=== PATIENT | female | born 2005 ===

== ENCOUNTER → 2025-02-14 | Outpatient (CLI) | payer OTHER | END | disposition home or self-care (01) | LOC: LAB SHORT 15:21 → LAB 15:21 | DX: O09.93 Supervision of high risk pregnancy, unspecified, third trimester (principal) | CPT/HCPCS: 87081; 87150 ==

== ENCOUNTER 2025-02-25 17:17 | Inpatient (IN) | payer OTHER ==
[~2025-02-25] VITALS: Ht 160 cm; Wt 84.5 kg
[2025-02-25] VITALS (23 sets, daily range): BP systolic 100–177; BP diastolic 59–102
[2025-02-25] MEDS ORDERED: CeFAZolin Sodium 2,000 MG in NS 100 ML IV SCH (18:10)
[2025-02-25 18:11] LABS: BASOPHILS ABSOLUTE AUTO 0.06 K/mm3 (0.00-0.23); BASOPHILS PERCENT AUTO 0 % (0-2); EOSINOPHILS ABSOLUTE AUTO 0.28 K/mm3 (0.00-0.68); EOSINOPHILS PERCENT AUTO 2 % (0-6); Hematocrit 33.7 % (33.0-51.0); Hemoglobin 11.6 g/dL (11.5-16.0); IMMATURE GRAN ABSOLUTE AUTO 0.23 K/mm3 (0.00-0.10); IMMATURE GRAN PERCENT AUTO 1 % (0-1); LYMPHOCYTES ABSOLUTE AUTO 2.74 K/mm3 (0.84-5.20); LYMPHOCYTES PERCENT AUTO 16 % (21-46); MONOCYTES ABSOLUTE AUTO 1.43 K/mm3 (0.16-1.47); MONOCYTES PERCENT AUTO 8 % (4-13); Mean Corpuscular HGB Conc 34.4 g/dL (31.5-36.5); Mean Corpuscular Volume 92 fL (80-100); NEUTROPHILS ABSOLUTE AUTO 12.67 K/mm3 (1.96-9.15); NEUTROPHILS PERCENT AUTO 73 % (41-73); NRBC ABSOLUTE 0.00 K/mm3 (0.00-0.02); NRBC Auto 0.0 /100 WBC (0.0-0.2); Platelet Count 222 K/mm3 (150-400); RDW Coefficient Variation 13.8 % (11.7-14.2); RDW Standard Deviation 46.2 fL (35.1-46.3)
[2025-02-25] MEDS ORDERED: SERT50 PO (18:32)
[2025-02-25] MEDS ORDERED: HYDPAM50 PO (18:32)
[2025-02-25] MEDS ORDERED: PRENATAL TABLE1 EAC2 PO (18:32)
[2025-02-25] MEDS ORDERED: Metoclopramide HCl 5MG / ML 2ML Vial IV PRN (18:40)
[2025-02-25] MEDS ORDERED: Citric Acid/Sodium Citrate 30 ML BTL PO PRN (18:40)
[2025-02-25] MEDS ORDERED: Carboprost Tromethamine 250 MCG/ML 1ML Amp IM PRN ×2 (19:10→20:50)
[2025-02-25] MEDS ORDERED: Methylergonovine Maleate 0.2MG / ML 1ML Amp IM PRN ×2 (19:10→21:00)
[2025-02-25] MEDS ORDERED: Ondansetron HCl 2 MG / ML 2ML Vial IV PRN ×3 (19:10→21:05)
[2025-02-25] MEDS ORDERED: OXYTOCIN/RINGER'S LACTATE 500 ML IV PRN (19:10)
[2025-02-25] MEDS ORDERED: Oxytocin 10 Unit / ML Vial IM PRN (19:10)
[2025-02-25] MEDS ORDERED: Oxytocin 10 Unit / ML Vial ONE (19:54)
[2025-02-25] MEDS ORDERED: Ondansetron HCl 2 MG / ML 2ML Vial ONE (20:06)
[2025-02-25] MEDS ORDERED: Dexamethasone Sod Phos 10 MG/ML 1ML VIAL ONE (20:11)
[2025-02-25 20:14] LABS: U Amphetamine Screen Not Detected; U Barbituate Screen Not Detected; U Benzodiazapine Screen Not Detected; U Buprenorphine Screen Not Detected; U Cannabinoids Screen DETECTED; U Cocaine Screen Not Detected; U Methadone Screen Not Detected; U Methamphetamine Screen Not Detected; U Opiates Screen Not Detected; U Oxycodone Screen Not Detected; U Phencyclidine Screen Not Detected
[2025-02-25 20:41] LABS: PCO2 Cord - Arterial 51.9 mmHg (40-50); PO2 Cord - Arterial 18.3 mmHg (16-20); pH Cord - Arterial 7.27 (7.28-7.35)
[2025-02-25 20:45] LABS: PCO2 Cord - Venous 49.1 mmHg (40-50); PO2 Cord - Venous < 14.0 mmHg (28-32); pH Umbilical Cord - Venous 7.33 (7.26-7.35)
[2025-02-25] MEDS ORDERED: OXYTOCIN/RINGER'S LACTATE 500 ML IV SCH (20:50)
[2025-02-25] MEDS ORDERED: Morphine Sulfate 4 MG/1 ML Injection IV PRN (20:55)
[2025-02-25] MEDS ORDERED: Rho(D) Immune Globulin 300 MCG / SYR IM ONE (20:55)
[2025-02-25] MEDS ORDERED: Magnesium Hydroxide Conc 10 ML UDC PO PRN (21:00)
[2025-02-25] MEDS ORDERED: Metoclopramide HCl 5MG / ML 2ML Vial IV ONE (21:00)
[2025-02-25] MEDS ORDERED: FentaNYL Citrate 50 MCG/ML 2 ML Injection IV PRN (21:00)
[2025-02-25] MEDS ORDERED: Ketorolac Tromethamine 30mg Vial IV SCH (21:00)
[2025-02-25] MEDS ORDERED: Citric Acid/Sodium Citrate 30 ML BTL PO ONE (21:05)
[2025-02-25] MEDS ORDERED: Prochlorperazine Edisylate 10 mg Vial IV PRN (21:05)
[2025-02-25] MEDS ORDERED: FentaNYL Citrate 50 MCG/ML 2 ML Injection ONE (21:08)
[2025-02-25] MEDS ORDERED: HYDROmorphone HCl/Pf 1MG SYR IV PRN (21:10)
[2025-02-25] MEDS ORDERED: Albuterol 2.5 MG/3 ML VIAL INH PRN (21:10)
[2025-02-25] MEDS ORDERED: Ketorolac Tromethamine 15mg Vial IV PRN (21:20)
[2025-02-26] VITALS (8 sets, daily range): BP systolic 118–137; BP diastolic 56–94
[2025-02-26] MEDS ORDERED: Prenatal Vit/FE Fumarate/FA 1 Tab PO SCH (09:00)
[2025-02-27 04:05] VITALS: BP 123/57
[2025-02-27 07:59] VITALS: BP 122/66
--- NOTE | 2025-02-27 11:02 | NUR ---
1000: MARIBETH DRISCOLL([facility] SAULT CHILD WELFARE ASSEMBLER FISHING FLOATS) AND RIMA CHAVEZ(OR DEPARTMENT OF HUMAN SERVES) HERE TO SEE PT. BOTH ENQUIRED IF STAFF HAD ANY CONCERNS. NOTHING TO REPORT AT THIS TIME. PT HAS BEEN APPROPRIATE. DID DISCUSS THE FACT THAT THE FOB, JT LINCOLN, WAS ON HIS WAY TO COME SEE THE NB. MARIBETH AND RIMA SAID THEY WOULD STAY AROUND AND VISIT WITH BOTH PARENTS AND WOULD REPORT A PLAN TO STAFF. DISCUSSED THE PLAN OF D/C ON MOM TOMORROW. MARIBETH SAID SHE WOULD BE BACK TOMORROW MORNING TO HELP WITH PICKING UP ANTONI'S PRESCRIPTIONS AND WOULD BE IN CONTACT WITH [facility] STAFF ABOUT HER SCRIPTS.
[2025-02-27 12:11] VITALS: BP 130/68
--- NOTE | 2025-02-27 13:23 | NUR ---
RIMA CHAVEZ ([facility] [employer] OF HUMAN RESOURCES CPS) AND UNIQUE DRISOCLL ([facility] CHILD [facility] CAMOUFLAGE ASSEMBLER) HERE TO SEE PT THIS MORNING. SPOKE WITH PT AND WITH JT AHMADI. PHONE NUMBERS LEFT WITH STAFF FOR CONTACTING IF ANY CONCERNS ARISE. PLAN THAT PT GOES HOME WITH NB TO [facility] AT THIS TIME. OFFICIAL PLAN AND PAPERWORK WILL BE BROUGHT IN TOMORROW. EPS SCORE 9/10. REFERRAL REQUEST SENT PER PT SOCIAL STATUS. SPOKE WITH WISAM FROM SOCIAL WORKERS. SHE REQUEST CPS WORKERS NAMES AND NUMBERS AND ALL PROVIDED. PT HAS BEEN INTO SEE NB VERY BRIEFLY THIS MORNING THE NURSERY IS VERY BUSY WITH MULTIPLE PTS AND STAFF. PT AND FOB STATE THEY FEEL LIKE THERE ISN'T MUCH SPACE. THEY HAVE BEEN GOING OUTSIDE TO SIT [facility] THE [facility] THEY SAY AND CURRENTLY IN THE ROOM, PT IS SLEEPING. JT AHMADI, ATTENTIVE TO ANTONI.
--- NOTE | 2025-02-27 13:31 | NUR ---
WISAM FROM SHOWER ROOM ATTENDANT CALLED AND AFTER SPEAKING WITH SOCIAL WORKERS RIMA AND MARIBETH, SHE FEELS THAT THERE IS NOTHING MORE SHE CAN OFFER THE PT THAT THEY AREN'T ALREADY COVERING SO NO VISIT FROM OUR SOCIAL SERVIICE WORKER WILL BE HAPPENING.
--- NOTE | 2025-02-27 14:42 | NUR ---
PT OUTSIDE WITH FOB. DENIES PAIN
[2025-02-27 16:02] VITALS: BP 109/53
[2025-02-27 20:22] VITALS: BP 114/73
[2025-02-27 23:13] VITALS: BP 123/71
[2025-02-28 04:51] VITALS: BP 157/82
[2025-02-28 05:02] VITALS: BP 124/75
[2025-02-28 08:06] VITALS: BP 135/86
[2025-02-28] MEDS ORDERED: DOCU100 PO (10:16)
[2025-02-28] MEDS ORDERED: IBUP800 PO (10:16)
[2025-02-28 10:30] VITALS: BP 119/72
--- NOTE | 2025-02-28 10:30 | NUR ---
Nara is doing well and cleared for discharge. Presriptions were picked up for her and they are in hand. Discharge instructions reviewed with patient and pt knows to make appt with panchito chen within 2 weeks. she also is scheduled for f/u wednesday with clinic rn Priscilla. all questions answered. patient ambulating well and pain well controlled with motrin and tylenol. is visiting baby in nursery and pumping. discharged to boarder status.
--- NOTE | 2025-03-02 10:59 | NUR ---
SCHEDULED FOR PPFU TODAY - PT REQUEST TO CHANGE APPOINTMENT TO BE ADDED TO BABY'S APPOINTMENT - PLAN FOR BABY TO DISCHARGE THIS EVENING - MOM DENIED QUESTIONS AT THIS TIME - EDUCATION R/T PUMP USE - HAND EXPRESSION - DENIED ANY OTHER NEEDS AT THIS TIME. SPOKE W/BHARAT RN REQUESTED TO SCHEDULE MOM APPOINTMENT W/BABYS AT DISCHARGE - ALSO REQUESTED ACC TO ADD NOTE TO FOR APPOINTMENT REMINDER
== END 2025-02-28 10:34 | disposition home or self-care (01) | DRG 787 ==
LOC: OBS 17:17 → BC 17:17 → OBS 18:02 → BC 18:12
PROVIDERS: Obstetrics & Gynecology; ADMIT Family Medicine
PROC: 10D00Z1 Extraction of Products of Conception, Low, Open Approach (ICD-10-PCS; principal; 2025-02-25 19:00)
DX: O36.8330 Maternal care for abnormalities of the fetal heart rate or rhythm, third trimester, not applicable or unspecified (principal); O99.324 Drug use complicating childbirth; O99.344 Other mental disorders complicating childbirth; O09.213 Supervision of pregnancy with history of pre-term labor, third trimester; F12.90 Cannabis use, unspecified, uncomplicated; F41.9 Anxiety disorder, unspecified; Z3A.37 37 weeks gestation of pregnancy; Z37.0 Single live birth; Z79.899 Other long term (current) drug therapy
CPT/HCPCS: 36415; 59025; 82803; 85025; 86850; 86900; 86901; 86923; 99214; A9270; J0690; J1100; J1885; J2405; J2590; J2765; J3010; J7120